=== PATIENT | female | born 1935 ===

== ENCOUNTER 2019-04-17 09:53 | Outpatient (CLI) | payer OTHER ==
[~2019-04-17] VITALS: Ht 154.9 cm; Wt 78.9 kg
== END 2019-04-17 10:10 | disposition home or self-care (01) ==
LOC: OFIC 805 09:53
DX: J31.0 Chronic rhinitis (principal); J34.2 Deviated nasal septum; R05 Cough; H90.3 Sensorineural hearing loss, bilateral